=== PATIENT | female | born 1970 | race Caucasian/White ===

== ENCOUNTER → 2017-12-09 | Outpatient (CLI) | payer OTHER | LOC: FIMAGING 09:35 | PROVIDERS: ATTEND Obstetrics & Gynecology | DX: Z12.31 Encounter for screening mammogram for malignant neoplasm of breast (principal) ==

== ENCOUNTER → 2019-01-10 | Outpatient (CLI) | payer OTHER | LOC: FIMAGING 14:03 | PROVIDERS: ATTEND Obstetrics & Gynecology | DX: Z12.31 Encounter for screening mammogram for malignant neoplasm of breast (principal) ==